=== PATIENT | male | born 1955 | race Caucasian/White ===

== ENCOUNTER 2022-06-17 15:18 | Inpatient (IN) | payer OTHER ==
[2022-06-17 16:56] VITALS: BMI 27.2
[2022-06-17] MEDS ORDERED: IBUPROFEN 600 MG TABLET (FP) PO PRN (20:22)
[2022-06-17] MEDS ORDERED: BENZOCAINE/MENTHOL (CHLORASEPTIC ) LOZENGE MM PRN (20:22)
[2022-06-17] MEDS ORDERED: LOPERAMIDE HCL 2 MG CAPSULE PO PRN (20:22)
[2022-06-17] MEDS ORDERED: DICYCLOMINE HCL 10 MG CAPSULE PO PRN (20:22)
[2022-06-17] MEDS ORDERED: ONDANSETRON *ODT* 4 MG TABLET SL PRN (20:22)
[2022-06-17] MEDS ORDERED: IBUPROFEN 400 MG TABLET (FP) PO PRN (20:22)
[2022-06-17] MEDS ORDERED: BISMUTH SUBSALICYLATE 524 MG/30 ML PO PRN (20:22)
[2022-06-17] MEDS ORDERED: NALOXONE HCL (KLOXXADO) 8 MG SPRAY NS PRN (20:22)
[2022-06-17] MEDS ORDERED: ACETAMINOPHEN 325 MG TABLET (FP) PO PRN ×2 (20:22)
[2022-06-17] MEDS ORDERED: POLYETHYLENE GLYCOL (HEALTHYLAX) 3350 17 GM PACKET PO PRN (20:22)
[2022-06-17] MEDS ORDERED: MAGNESIUM HYDROX 2400MG/30ML ORAL SUSPENSION 30 ML CUP PO PRN (20:22)
[2022-06-17] MEDS ORDERED: MAG HYDROX/AL HYDROX/SIMETH 30 ML UNIT-DOSE CUP PO PRN (20:22)
[2022-06-17] MEDS: THIAMINE HCL 100 MG TABLET (FP) PO SCH (21:43)
[2022-06-17] MEDS: MELATONIN 5 MG TABLETS PO SCH (21:43)
[2022-06-18] MEDS: PRENATAL VITAMINS W/ FOLIC ACID TABLET (FP) PO SCH (11:24)
[2022-06-18 11:42] LABS: HEMATOCRIT 38.1 % (35.4-49); HEMOGLOBIN 12.8 GM/dL (11.7-16.9); MCH 30.6 pg (25.7-33.7); MCHC 33.6 g/dl (32.0-35.9); MEAN CELL VOLUME 91.2 fl (80-96); MEAN PLT VOLUME 7.5 fl (7.5-11.1); PLATELET COUNT 195 10^3/uL (134-434); RBC 4.18 M/mm3 (4.00-5.60); RDW 13.5 % (11.9-15.9); WHITE BLOOD COUNT 8.7 K/mm3 (4.0-10.0)
[2022-06-18 11:48] LABS: CALCIUM 8.6 mg/dL (8.5-10.1)
[2022-06-18 11:49] LABS: ALBUMIN 3.5 g/dl (3.4-5.0); BLOOD UREA NITROGEN 18.7 mg/dL (7-18)
[2022-06-18 11:50] LABS: BILIRUBIN,TOTAL 1.4 mg/dL (0.2-1); CREATININE 0.8 mg/dL (0.55-1.3); TOT PROT 6.4 g/dl (6.4-8.2)
[2022-06-18] MEDS ORDERED: cloNIDine HCL 0.1 MG TABLET PO PRN (13:10)
[2022-06-18] MEDS: METHOCARBAMOL 500 MG TABLET PO PRN (13:29)
[2022-06-18] MEDS: diazePAM 5 MG TABLET PO PRN (13:30)
[2022-06-18] MEDS ORDERED: methaDONE HCL 10 MG TABLET (FOR DETOX USE ONLY) PO ONE (14:00)
[2022-06-18] MEDS ORDERED: POTASSIUM CHLORIDE ORAL LIQUID 20 MEQ/15 ML PO ONE (14:45)
[2022-06-18] MEDS: LISINOPRIL 10 MG TABLET PO SCH (15:01)
[2022-06-18] MEDS: diazePAM 5 MG TABLET PO SCH ×2 (17:31→22:11)
[2022-06-18] MEDS: THIAMINE HCL 100 MG TABLET (FP) PO SCH (22:10)
[2022-06-18] MEDS: MELATONIN 5 MG TABLETS PO SCH (22:10)
[2022-06-19] MEDS: diazePAM 5 MG TABLET PO SCH ×4 (05:49→22:06)
[2022-06-19] MEDS: METHOCARBAMOL 500 MG TABLET PO PRN (10:09)
[2022-06-19] MEDS: PRENATAL VITAMINS W/ FOLIC ACID TABLET (FP) PO SCH (10:10)
[2022-06-19] MEDS: LISINOPRIL 10 MG TABLET PO SCH (10:10)
[2022-06-19] MEDS: THIAMINE HCL 100 MG TABLET (FP) PO SCH (22:05)
[2022-06-19] MEDS: MELATONIN 5 MG TABLETS PO SCH (22:05)
[2022-06-19] MEDS: MIRTAZAPINE 15 MG TABLET (FP) PO SCH (22:06)
[2022-06-19] MEDS: QUEtiapine FUMARATE 100 MG TABLET (FP) PO SCH (22:06)
[2022-06-20] MEDS: diazePAM 5 MG TABLET PO SCH ×3 (05:27→22:27)
[2022-06-20] MEDS: diazePAM 5 MG TABLET PO PRN (06:00)
[2022-06-20] MEDS ORDERED: methaDONE HCL 10 MG TABLET (FOR DETOX USE ONLY) PO ONE (10:00)
[2022-06-20] MEDS: LISINOPRIL 10 MG TABLET PO SCH (10:29)
[2022-06-20] MEDS: PRENATAL VITAMINS W/ FOLIC ACID TABLET (FP) PO SCH (10:29)
[2022-06-20] MEDS: MELATONIN 5 MG TABLETS PO SCH (22:27)
[2022-06-20] MEDS: THIAMINE HCL 100 MG TABLET (FP) PO SCH (22:27)
[2022-06-20] MEDS: MIRTAZAPINE 15 MG TABLET (FP) PO SCH (22:27)
[2022-06-20] MEDS: QUEtiapine FUMARATE 100 MG TABLET (FP) PO SCH (22:27)
[2022-06-21] MEDS: diazePAM 5 MG TABLET PO SCH ×2 (05:18→17:32)
[2022-06-21] MEDS: PRENATAL VITAMINS W/ FOLIC ACID TABLET (FP) PO SCH (10:02)
[2022-06-21] MEDS: LISINOPRIL 10 MG TABLET PO SCH (10:02)
[2022-06-21] MEDS: diazePAM 5 MG TABLET PO PRN (10:02)
[2022-06-21] MEDS: MIRTAZAPINE 15 MG TABLET (FP) PO SCH (21:51)
[2022-06-21] MEDS: QUEtiapine FUMARATE 100 MG TABLET (FP) PO SCH (21:52)
[2022-06-21] MEDS: THIAMINE HCL 100 MG TABLET (FP) PO SCH (21:52)
[2022-06-21] MEDS: MELATONIN 5 MG TABLETS PO SCH (21:56)
[2022-06-22] MEDS: METHOCARBAMOL 500 MG TABLET PO PRN (02:35)
[2022-06-22] MEDS ORDERED: diazePAM 5 MG TABLET PO ONE (06:00)
[2022-06-22] MEDS: PRENATAL VITAMINS W/ FOLIC ACID TABLET (FP) PO SCH (09:37)
[2022-06-22] MEDS: LISINOPRIL 10 MG TABLET PO SCH (09:37)
[2022-06-22 09:46] VITALS: BP 120/76; PULSE 86; RESP 16; TEMP 97.5
== END 2022-06-22 09:54 | disposition home or self-care (01) | DRG 897 ==
LOC: YASAS 15:18 → UNDOADMIN 20:45 → Y3N 20:45
PROVIDERS: ADMIT Allergy & Immunology; ATTEND Psychiatry & Neurology Psychiatry
PROC: HZ2ZZZZ Detoxification Services for Substance Abuse Treatment (ICD-10-PCS; principal; 2022-06-17)
DX: F11.23 Opioid dependence with withdrawal (principal); F14.20 Cocaine dependence, uncomplicated; F16.20 Hallucinogen dependence, uncomplicated; F10.230 Alcohol dependence with withdrawal, uncomplicated; F12.20 Cannabis dependence, uncomplicated; F19.24 Other psychoactive substance dependence with psychoactive substance-induced mood disorder; G47.00 Insomnia, unspecified; I10 Essential (primary) hypertension; H91.92 Unspecified hearing loss, left ear; E87.6 Hypokalemia; E80.6 Other disorders of bilirubin metabolism; R76.8 Other specified abnormal immunological findings in serum; Z86.19 Personal history of other infectious and parasitic diseases; Z87.891 Personal history of nicotine dependence
CPT/HCPCS: 36415; 80053; 84132; 85027; 86593; 86780; 93005; 93010; C9803-CS; U0003; U0005

== ENCOUNTER 2022-07-21 11:13 | Inpatient (IN) | payer OTHER ==
[2022-07-21 11:58] VITALS: BMI 27.3
[2022-07-21] MEDS ORDERED: cloNIDine HCL 0.1 MG TABLET PO PRN (12:41)
[2022-07-21] MEDS ORDERED: chlordiazePOXIDE HCL 25 MG CAPSULE PO PRN (12:41)
[2022-07-21] MEDS ORDERED: MAG HYDROX/AL HYDROX/SIMETH 30 ML UNIT-DOSE CUP PO PRN (12:43)
[2022-07-21] MEDS ORDERED: MAGNESIUM HYDROX 2400MG/30ML ORAL SUSPENSION 30 ML CUP PO PRN (12:43)
[2022-07-21] MEDS ORDERED: POLYETHYLENE GLYCOL (HEALTHYLAX) 3350 17 GM PACKET PO PRN (12:43)
[2022-07-21] MEDS ORDERED: ONDANSETRON *ODT* 4 MG TABLET SL PRN (12:43)
[2022-07-21] MEDS ORDERED: BENZOCAINE/MENTHOL (CHLORASEPTIC ) LOZENGE MM PRN (12:43)
[2022-07-21] MEDS ORDERED: NALOXONE HCL (KLOXXADO) 8 MG SPRAY NS PRN (12:43)
[2022-07-21] MEDS ORDERED: IBUPROFEN 400 MG TABLET (FP) PO PRN (12:43)
[2022-07-21] MEDS ORDERED: ACETAMINOPHEN 325 MG TABLET (FP) PO PRN ×2 (12:43)
[2022-07-21] MEDS ORDERED: hydrOXYzine PAMOATE 25 MG CAPSULE (FP) PO PRN (12:43)
[2022-07-21] MEDS ORDERED: BISMUTH SUBSALICYLATE 524 MG/30 ML PO PRN (12:43)
[2022-07-21] MEDS ORDERED: LOPERAMIDE HCL 2 MG CAPSULE PO PRN (12:43)
[2022-07-21] MEDS ORDERED: IBUPROFEN 600 MG TABLET (FP) PO PRN (12:43)
[2022-07-21] MEDS ORDERED: METHOCARBAMOL 500 MG TABLET PO PRN (12:43)
[2022-07-21] MEDS ORDERED: methaDONE HCL 10 MG TABLET (FOR DETOX USE ONLY) PO ONE (13:00)
[2022-07-21] MEDS ORDERED: methaDONE HCL 10 MG TABLET (FOR DETOX USE ONLY) ONE (13:08)
[2022-07-21] MEDS: chlordiazePOXIDE HCL 25 MG CAPSULE PO SCH ×2 (17:28→22:46)
[2022-07-21 19:19] LABS: HEMATOCRIT 42.2 % (35.4-49); HEMOGLOBIN 13.7 GM/dL (11.7-16.9); MCH 29.3 pg (25.7-33.7); MCHC 32.5 g/dl (32.0-35.9); MEAN CELL VOLUME 90.3 fl (80-96); MEAN PLT VOLUME 7.7 fl (7.5-11.1); PLATELET COUNT 216 10^3/uL (134-434); RBC 4.68 M/mm3 (4.00-5.60); RDW 14.2 % (11.9-15.9); WHITE BLOOD COUNT 4.5 K/mm3 (4.0-10.0)
[2022-07-21 19:22] LABS: CALCIUM 8.7 mg/dL (8.5-10.1)
[2022-07-21 19:23] LABS: ALBUMIN 3.5 g/dl (3.4-5.0); BLOOD UREA NITROGEN 17.8 mg/dL (7-18)
[2022-07-21 19:26] LABS: CREATININE 0.7 mg/dL (0.55-1.3)
[2022-07-21 19:27] LABS: BILIRUBIN,TOTAL 0.2 mg/dL (0.2-1); TOT PROT 6.6 g/dl (6.4-8.2)
[2022-07-21] MEDS: MIRTAZAPINE 15 MG TABLET (FP) PO SCH (22:45)
[2022-07-21] MEDS: MELATONIN 5 MG TABLETS PO SCH (22:45)
[2022-07-21] MEDS: THIAMINE HCL 100 MG TABLET (FP) PO SCH (22:45)
[2022-07-22] MEDS: chlordiazePOXIDE HCL 25 MG CAPSULE PO SCH ×4 (06:04→22:24)
[2022-07-22] MEDS: LISINOPRIL 10 MG TABLET PO SCH (10:27)
[2022-07-22] MEDS: PRENATAL VITAMINS W/ FOLIC ACID TABLET (FP) PO SCH (10:27)
[2022-07-22] MEDS: THIAMINE HCL 100 MG TABLET (FP) PO SCH (22:24)
[2022-07-22] MEDS: MIRTAZAPINE 15 MG TABLET (FP) PO SCH (22:24)
[2022-07-22] MEDS: MELATONIN 5 MG TABLETS PO SCH (22:24)
[2022-07-23] MEDS: chlordiazePOXIDE HCL 25 MG CAPSULE PO SCH ×3 (06:08→17:27)
[2022-07-23] MEDS ORDERED: methaDONE HCL 10 MG TABLET (FOR DETOX USE ONLY) PO ONE (10:00)
[2022-07-23] MEDS: LISINOPRIL 10 MG TABLET PO SCH (10:19)
[2022-07-23] MEDS: PRENATAL VITAMINS W/ FOLIC ACID TABLET (FP) PO SCH (10:19)
[2022-07-23 13:45] VITALS: RESP 18
[2022-07-23 19:02] VITALS: BP 142/93; PULSE 87; TEMP 97.7
[2022-07-24] MEDS ORDERED: chlordiazePOXIDE HCL 10 MG CAPSULE PO SCH (05:00)
[2022-07-25] MEDS ORDERED: chlordiazePOXIDE HCL 10 MG CAPSULE PO SCH (05:00)
[2022-07-25] MEDS ORDERED: methaDONE HCL 10 MG TABLET (FOR DETOX USE ONLY) PO ONE (10:00)
[2022-07-26] MEDS ORDERED: chlordiazePOXIDE HCL 10 MG CAPSULE PO ONE (05:00)
== END 2022-07-23 18:48 | disposition left against medical advice (07) | DRG 894 ==
LOC: YASAS 11:13 → Y6N 12:48
PROVIDERS: ADMIT Allergy & Immunology; ATTEND Surgery
PROC: HZ2ZZZZ Detoxification Services for Substance Abuse Treatment (ICD-10-PCS; principal; 2022-07-21)
DX: F11.23 Opioid dependence with withdrawal (principal); F14.20 Cocaine dependence, uncomplicated; F19.282 Other psychoactive substance dependence with psychoactive substance-induced sleep disorder; F10.230 Alcohol dependence with withdrawal, uncomplicated; F12.20 Cannabis dependence, uncomplicated; I10 Essential (primary) hypertension; H91.92 Unspecified hearing loss, left ear; Z86.19 Personal history of other infectious and parasitic diseases
CPT/HCPCS: 36415; 80053; 85027; 86593; 86780; C9803-CS; U0003; U0005

== ENCOUNTER 2022-11-18 19:03 | Inpatient (IN) | payer OTHER ==
[2022-11-18 19:44] VITALS: BMI 28.4
[2022-11-18] MEDS ORDERED: IBUPROFEN 400 MG TABLET (FP) PO PRN (21:45)
[2022-11-18] MEDS ORDERED: POLYETHYLENE GLYCOL (HEALTHYLAX) 3350 17 GM PACKET PO PRN (21:45)
[2022-11-18] MEDS ORDERED: DICYCLOMINE HCL 10 MG CAPSULE PO PRN (21:45)
[2022-11-18] MEDS ORDERED: guaiFENesin 600 MG TABLET.ER (FP) PO PRN (21:45)
[2022-11-18] MEDS ORDERED: LOPERAMIDE HCL 2 MG CAPSULE PO PRN (21:45)
[2022-11-18] MEDS ORDERED: BISMUTH SUBSALICYLATE 524 MG/30 ML PO PRN (21:45)
[2022-11-18] MEDS ORDERED: NALOXONE HCL 0.4 MG/ML VIAL IM PRN (21:45)
[2022-11-18] MEDS ORDERED: METHOCARBAMOL 500 MG TABLET PO PRN (21:45)
[2022-11-18] MEDS ORDERED: ACETAMINOPHEN 325 MG TABLET (FP) PO PRN (21:45)
[2022-11-18] MEDS ORDERED: MAG HYDROX/AL HYDROX/SIMETH 30 ML UNIT-DOSE CUP PO PRN (21:45)
[2022-11-18] MEDS ORDERED: BENZONATATE 200 MG CAPSULE PO PRN (21:45)
[2022-11-18] MEDS ORDERED: MAGNESIUM HYDROX 2400MG/30ML ORAL SUSPENSION 30 ML CUP PO PRN (21:45)
[2022-11-18] MEDS ORDERED: NALOXONE HCL (KLOXXADO) 8 MG SPRAY NS PRN (21:45)
[2022-11-18] MEDS ORDERED: BENZOCAINE/MENTHOL (CHLORASEPTIC ) LOZENGE MM PRN (21:45)
[2022-11-18] MEDS ORDERED: ONDANSETRON *ODT* 4 MG TABLET SL PRN (21:45)
[2022-11-18] MEDS ORDERED: IBUPROFEN 600 MG TABLET (FP) PO PRN (21:45)
[2022-11-18] MEDS ORDERED: cloNIDine HCL 0.1 MG TABLET PO PRN (22:01)
[2022-11-18] MEDS ORDERED: methaDONE HCL 10 MG TABLET (FOR DETOX USE ONLY) PO ONE (22:01)
[2022-11-18] MEDS ORDERED: diazePAM 5 MG TABLET PO PRN (22:01)
[2022-11-18] MEDS ORDERED: methaDONE HCL 10 MG TABLET (FOR DETOX USE ONLY) ONE (22:22)
[2022-11-18] MEDS ORDERED: MELATONIN 5 MG TABLETS ONE (23:00)
[2022-11-18] MEDS ORDERED: diazePAM 5 MG TABLET ONE (23:01)
[2022-11-18] MEDS: diazePAM 5 MG TABLET PO SCH (23:05)
[2022-11-18] MEDS: MELATONIN 5 MG TABLETS PO SCH (23:06)
[2022-11-19] MEDS: THIAMINE HCL 100 MG TABLET (FP) PO SCH ×2 (00:29→22:28)
[2022-11-19] MEDS: diazePAM 5 MG TABLET PO SCH ×4 (06:04→22:28)
[2022-11-19] MEDS: PRENATAL VITAMINS W/ FOLIC ACID TABLET (FP) PO SCH (10:43)
[2022-11-19] MEDS: SODIUM CHLORIDE NASAL SPRAY 44 ML BOTTLE NS SCH ×2 (15:12→22:26)
[2022-11-19 15:34] LABS: MCHC 34.1 g/dl (32.0-35.9); MEAN CELL VOLUME 87.9 fl (80-96); PLATELET COUNT 203 10^3/uL (134-434); RBC 4.66 M/mm3 (4.00-5.60); WHITE BLOOD COUNT 4.7 K/mm3 (4.0-10.0)
[2022-11-19 15:57] LABS: BLOOD UREA NITROGEN 17.4 mg/dL (7-18); CALCIUM 8.9 mg/dL (8.5-10.1)
[2022-11-19 15:58] LABS: ALBUMIN 3.7 g/dl (3.4-5.0)
[2022-11-19 16:00] LABS: CREATININE 0.8 mg/dL (0.55-1.3)
[2022-11-19 16:01] LABS: BILIRUBIN,TOTAL 0.9 mg/dL (0.2-1); TOT PROT 6.9 g/dl (6.4-8.2)
[2022-11-19] MEDS: MELATONIN 5 MG TABLETS PO SCH (22:28)
[2022-11-20] MEDS: diazePAM 5 MG TABLET PO SCH ×3 (06:48→22:32)
[2022-11-20] MEDS: SODIUM CHLORIDE NASAL SPRAY 44 ML BOTTLE NS SCH ×3 (06:49→22:32)
[2022-11-20] MEDS ORDERED: methaDONE HCL 10 MG TABLET (FOR DETOX USE ONLY) PO ONE (10:00)
[2022-11-20] MEDS: PRENATAL VITAMINS W/ FOLIC ACID TABLET (FP) PO SCH (10:19)
[2022-11-20] MEDS: MIRTAZAPINE 15 MG TABLET (FP) PO SCH (22:31)
[2022-11-20] MEDS: MELATONIN 5 MG TABLETS PO SCH (22:31)
[2022-11-20] MEDS: THIAMINE HCL 100 MG TABLET (FP) PO SCH (22:31)
[2022-11-21] MEDS: SODIUM CHLORIDE NASAL SPRAY 44 ML BOTTLE NS SCH ×3 (05:43→22:28)
[2022-11-21] MEDS: diazePAM 5 MG TABLET PO SCH ×2 (05:43→17:30)
[2022-11-21] MEDS: PRENATAL VITAMINS W/ FOLIC ACID TABLET (FP) PO SCH (10:26)
[2022-11-21] MEDS: THIAMINE HCL 100 MG TABLET (FP) PO SCH (22:29)
[2022-11-21] MEDS: MIRTAZAPINE 15 MG TABLET (FP) PO SCH (22:29)
[2022-11-21] MEDS: MELATONIN 5 MG TABLETS PO SCH (22:29)
[2022-11-22] MEDS: SODIUM CHLORIDE NASAL SPRAY 44 ML BOTTLE NS SCH (05:48)
[2022-11-22] MEDS ORDERED: diazePAM 5 MG TABLET PO ONE (06:00)
[2022-11-22 09:04] VITALS: BP 147/92; PULSE 78; RESP 18; TEMP 97.9
[2022-11-22] MEDS ORDERED: methaDONE HCL 10 MG TABLET (FOR DETOX USE ONLY) PO ONE (10:00)
== END 2022-11-22 09:00 | disposition home or self-care (01) | DRG 897 ==
LOC: YASAS 19:03 → Y3N 22:33
PROVIDERS: ADMIT Allergy & Immunology; ATTEND Surgery
PROC: HZ2ZZZZ Detoxification Services for Substance Abuse Treatment (ICD-10-PCS; principal; 2022-11-18)
DX: F11.23 Opioid dependence with withdrawal (principal); F13.20 Sedative, hypnotic or anxiolytic dependence, uncomplicated; F14.20 Cocaine dependence, uncomplicated; F10.230 Alcohol dependence with withdrawal, uncomplicated; F12.20 Cannabis dependence, uncomplicated; F19.24 Other psychoactive substance dependence with psychoactive substance-induced mood disorder; G47.00 Insomnia, unspecified; H91.91 Unspecified hearing loss, right ear; I10 Essential (primary) hypertension; Z86.19 Personal history of other infectious and parasitic diseases
CPT/HCPCS: 36415; 80053; 85027; 86593; 86780; C9803-CS; U0003; U0005